=== PATIENT | male | born 1965 | race Caucasian/White ===

== ENCOUNTER 2019-12-04 18:56 | Emergency (ER) | payer BC, MEDICARE ==
[2019-12-04] MEDS ORDERED: Sodium Chloride 0.9% 10 ML Syringe FLUSH PRN (20:17)
[2019-12-04] MEDS ORDERED: Sodium Chloride 0.9% 2.5 ML Syringe FLUSH PRN (20:17)
--- NOTE | 2019-12-04 20:51 | EDM.PDOC ---
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 Patient has no complaints relating to fever. He has no recent coughing or shortness of breath. No recent chest pain. No arm or jaw pain. However he does report right thigh pain which is medial. It only seems to hurt when he moves his leg upward and inward. He does not hurt unless he is walking. The pain is mild to moderate. He suspects maybe he pulled a muscle. Patient has no history of lower leg clots and is on aspirin as well as Coumadin. Patient does not make hardly any urine this is not changed however he also endorses normal stooling recently. No recent falls. No recent confusion, headaches, vision changes. No recent weight loss. right upper leg Pain Score (Numeric/FACES): 3 - Related Data Allergies Allergy/AdvReac Type Severity Reaction Status Date / Time heparin Allergy Other Verified 12/04/19 19:56 Home Meds: Home Meds Aspirin 81 mg PO DAILY 12/04/19 [History] Cholecalciferol (Vitamin D3) [Vitamin D3] 1 cap PO DAILY 12/04/19 [History] Ciprofloxacin HCl [Cipro] 500 mg PO DAILY 12/04/19 [History] Fluconazole [Diflucan] 400 mg PO ASDIRECTED 12/04/19 [History] Folic Acid/Vit B Complex and C [Dialyvite] 1 tab PO DAILY 12/04/19 [History] Oxymetazoline [Afrin Original 0.05% Nasal [place]] 2 drop NASBOTH BID PRN [History] Pantoprazole Sodium [Protonix] 40 mg PO DAILY 12/04/19 [History] Phytonadione (Vit K1) [Vitamin K1] 100 mcg PO DAILY 12/04/19 [History] Rosuvastatin [Crestor] 10 mg PO DAILY 12/04/19 [History] Sodium Chloride [Theodosia] 1 spray NASBOTH DAILY PRN 12/04/19 [History] Warfarin Sodium [Coumadin] 1 mg PO ASDIRECTED 12/04/19 [History] Warfarin Sodium [Coumadin] 2 mg PO ASDIRECTED 12/04/19 [History] amLODIPine [Norvasc] 10 mg PO DAILY 12/04/19 [History] polyethylene glycoL 3350 [MiraLAX] 17 gm PO DAILY PRN 12/04/19 [History] Past Medical History Cardiovascular History: Reports: Other (See Below) Other Cardiovascular History: LVAD Respiratory History: Reports: Other (See Below) Other Respiratory History: Fluid in R lung Genitourinary History: Reports: Acute Renal Failure, Dialysis Social & Family History - Family History Family Medical History: Noncontributory - Tobacco Use Smoking Status *Q: Never Smoker - Recreational Drug Use Recreational Drug Use: No ED ROS GENERAL - Review of Systems Review Of Systems: Comprehensive ROS is negative, except as noted in HPI. ED EXAM, GENERAL - Physical Exam Exam: See Below Free Text/Narrative:: General: No acute distress. Comfortable. Heent: Examination revealed no pallor, no icterus, no lymphadenopathy. The patient has normal posterior pharynx, moist mucous membranes. Neck: Supple. No JVD. No rigidity. Heart: Lvad fucntional Lungs: Normal rise and fall. Symmetric movement. Normal rate.. Abdomen: Nontender, non-distended, soft, no CVA tenderness. Neuro: Pt is moving all four extremities. EOMI. PERRL. Normal speech. Skin: Exposed areas appeared normally perfused, warm, normal color with no meaningful rashes or lesions. Extremities: Peripheral examination revealed no pedal edema. Peripheral pulses were 2+. There is tenderness along the proximal portion of the muscle tendons relating to the obturator grouping. There is no swelling of the leg or pain or tenderness along the track of the femoral artery or vein. Course - Vital Signs Text/Narrative:: Stable patient however with a history of some shaking chills and a fever at dialysis today. Significant leukocytosis with significant bandemia. Vancomycin , admission overnight for monitoring for possible very early bacteremia. Last Recorded V/S: Last Vital Signs Temp 100.4 F 12/04/19 21:08 Pulse 108 H 12/04/19 21:08 Resp 18 12/04/19 21:08 BP 114/92 H 12/04/19 21:08 Pulse Ox 98 12/04/19 21:08 - Orders/Labs/Meds Orders: Active Orders 24 hr Category Date Time Status Admission Status [Patient Status] [ADT] Stat ADT 12/04/19 22:43 Active CULTURE BLOOD [BC] Stat Lab 12/04/19 20:20 Received CULTURE BLOOD [BC] Stat Lab 12/04/19 20:29 Received Sodium Chloride 0.9% [Saline Flush] Med 12/04/19 20:17 Active 10 ml FLUSH ASDIRECTED PRN Sodium Chloride 0.9% [Saline Flush] Med 12/04/19 20:17 Active 2.5 ml FLUSH ASDIRECTED PRN Vancomycin 1 gm Med 12/04/19 22:14 Active Sodium Chloride 0.9% [Normal Saline (AdvBag)] 250 ml IV ONETIME Blood Culture x2 Reflex Set [OM.PC] Stat Oth 12/04/19 20:17 Ordered Saline Lock Insert [OM.PC] Stat Oth 12/04/19 20:17 Ordered Medication Orders Vancomycin HCl 1 gm/ Sodium (Chloride) 250 mls @ 166 mls/hr IV ONETIME ONE Stop: 12/04/19 23:44 Last Admin: 12/04/19 22:39 Dose: 166 mls/hr Sodium Chloride (Saline Flush) 10 ml FLUSH ASDIRECTED PRN PRN Reason: Keep Vein Open Last Admin: 12/04/19 20:19 Dose: 10 ml Sodium Chloride (Saline Flush) 2.5 ml FLUSH ASDIRECTED PRN PRN Reason: Keep Vein Open Last Admin: 12/04/19 20:19 Dose: 2.5 ml Labs: Laboratory Tests 12/04/19 12/04/19 12/04/19 Range/Units 20:20 20:20 20:30 WBC 21.67 H (4.0-11.0) K/uL RBC 4.40 L (4.50-5.90) M/uL Hgb 11.4 L (13.0-17.0) g/dL Hct 37.1 L (38.0-50.0) % MCV 84.3 (80.0-98.0) fL MCH 25.9 L (27.0-32.0) pg MCHC 30.7 L (31.0-37.0) g/dL RDW Std Deviation 50.1 (28.0-62.0) fl RDW Coeff of Ulices 16 H (11.0-15.0) % Plt Count 462 H (150-400) K/uL MPV 9.40 (7.40-12.00) fL Neut % (Auto) 83.6 H (48.0-80.0) % Lymph % (Auto) 4.5 L (16.0-40.0) % [place] % (Auto) 11.3 (0.0-15.0) % Eos % (Auto) 0.5 (0.0-7.0) % Baso % (Auto) 0.1 (0.0-1.5) % Neut # (Auto) 18.1 H (1.4-5.7) K/uL Lymph # (Auto) 1.0 (0.6-2.4) K/uL [place] # (Auto) 2.4 H (0.0-0.8) K/uL Eos # (Auto) 0.1 (0.0-0.7) K/uL Baso # (Auto) 0.0 (0.0-0.1) K/uL Nucleated RBC % 0.0 /100WBC Nucleated RBCs # 0 K/uL Lactate 1.6 (0.20-2.00) mmol/L Sodium 136 (136-148) mmol/L Potassium 3.5 (3.5-5.1) mmol/L Chloride 95 L (98-107) mmol/L Carbon Dioxide 31.4 (21.0-32.0) mmol/L BUN 12 (7.0-18.0) mg/dL Creatinine 2.7 H (0.8-1.3) mg/dL Est Cr Clr Drug Dosing 28.09 mL/min Estimated GFR (MDRD) 24.7 ml/min Glucose 106 (74-106) mg/dL Calcium 8.6 (8.5-10.1) mg/dL Total Bilirubin 0.5 (0.2-1.0) mg/dL AST 28 (15-37) IU/L ALT 27 (14-63) IU/L Alkaline Phosphatase 82 (46-116) U/L Total Protein 8.4 H (6.4-8.2) g/dL Albumin 3.4 (3.4-5.0) g/dL Globulin 5.0 H (2.6-4.0) g/dL Albumin/Globulin Ratio 0.7 L (0.9-1.6) Meds: Medications Generic Name Dose Route Start Last Admin Trade Name Freq PRN Reason Stop Dose Admin Vancomycin HCl 1 gm/ Sodium 250 mls @ 166 mls/hr 12/04/19 22:14 12/04/19 22: 39 Chloride IV 12/04/19 23:44 166 mls/hr ONETIME ONE Administration Sodium Chloride 10 ml 12/04/19 20:17 12/04/19 20:19 Saline Flush FLUSH 10 ml ASDIRECTED PRN Administration Keep Vein Open Sodium Chloride 2.5 ml 12/04/19 20:17 12/04/19 20:19 Saline Flush FLUSH 2.5 ml ASDIRECTED PRN Administration Keep Vein Open Departure - Departure Time of Disposition: 22:15 Disposition: Admitted As Inpatient 66 Condition: Fair Clinical Impression: Fever Qualifiers: Fever type: due to other condition Qualified Code(s): R50.81 - Fever presenting with conditions classified elsewhere Leukocytosis Qualifiers: Leukocytosis type: bandemia Qualified Code(s): D72.825 - Bandemia - Discharge Information Referrals: PCP,Not In Area [Primary Care Provider] - Forms: ED Department Discharge Sepsis Event Note - Evaluation Sepsis Screening Result: No Definite Risk - Focused Exam Vital Signs: Vital Signs Temp Temp Pulse Resp BP Pulse Ox 12/04/19 21:08 100.4 F 108 H 18 114/92 H 98 12/04/19 20:18 98.0 F 12/04/19 19:53 99.4 F 116 H 18 108/78 93 L Date Exam was Performed: 12/04/19 Time Exam was Performed: 23:05 - My Orders Last 24 Hours: My Active Orders 12/04/19 20:17 Sodium Chloride 0.9% [Saline Flush] 10 ml FLUSH ASDIRECTED PRN Sodium Chloride 0.9% [Saline Flush] 2.5 ml FLUSH ASDIRECTED PRN Blood Culture x2 Reflex Set [OM.PC] Stat Saline Lock Insert [OM.PC] Stat 12/04/19 20:20 CULTURE BLOOD [BC] Stat 12/04/19 20:29 CULTURE BLOOD [BC] Stat 12/04/19 22:14 Vancomycin 1 gm Sodium Chloride 0.9% [Normal Saline (AdvBag)] 250 ml IV ONETIME 12/04/19 22:43 Admission Status [Patient Status] [ADT] Stat - Assessment/Plan Last 24 Hours: My Active Orders 12/04/19 20:17 Sodium Chloride 0.9% [Saline Flush] 10 ml FLUSH ASDIRECTED PRN Sodium Chloride 0.9% [Saline Flush] 2.5 ml FLUSH ASDIRECTED PRN Blood Culture x2 Reflex Set [OM.PC] Stat Saline Lock Insert [OM.PC] Stat 12/04/19 20:20 CULTURE BLOOD [BC] Stat 12/04/19 20:29 CULTURE BLOOD [BC] Stat 12/04/19 22:14 Vancomycin 1 gm Sodium Chloride 0.9% [Normal Saline (AdvBag)] 250 ml IV ONETIME 12/04/19 22:43 Admission Status [Patient Status] [ADT] Stat
[2019-12-04 20:57] LABS: CARBON DIOXIDE,CO2 31.4 mmol/L (21.0-32.0); POTASSIUM,K 3.5 mmol/L (3.5-5.1)
--- NOTE | 2019-12-04 21:53 | CR ---
Chest: 2 views of the chest were obtained. Comparison: Prior chest x-ray is not available. Elevated right hemidiaphragm is noted. Blunting of the right lateral costophrenic angle is seen. Linear density is noted off the right hilar region. Findings most likely are chronic although old chest x-ray would be needed to confirm. Right sided dialysis catheter is noted. Pacemaker is noted. Previous sternotomy is noted. Left ventricular assist device is noted. Left lung is clear. Impression: 1. Findings as noted above most likely chronic although old study would be needed to confirm. Diagnostic code #3 This report was dictated in MDT
[2019-12-04] MEDS ORDERED: EPINEPHrine 1 MG/ML 30 ML MDV IM ONE ×2 (23:45→23:51)
[2019-12-04] MEDS ORDERED: Sodium Chloride 0.9% 200 ML IV SCH (23:45)
[2019-12-04] MEDS ORDERED: Ondansetron 4 MG/2 ML SDV ONE (23:52)
[2019-12-04] MEDS ORDERED: Ondansetron 4 MG/2 ML SDV IVPUSH ONE (23:53)
[2019-12-04] MEDS ORDERED: diphenhydrAMINE 50 MG/ML SDV IVPUSH ONE (23:54)
[2019-12-04] MEDS ORDERED: diphenhydrAMINE 50 MG/ML SDV ONE (23:55)
[2019-12-05] MEDS ORDERED: EPINEPHrine 1 MG in Dextrose 5% in Water 99 ML IV SCH ×4 (00:15→00:34)
[2019-12-05] MEDS ORDERED: EPINEPHrine 1 MG/ML SDV ONE (00:20)
--- NOTE | 2019-12-05 01:01 | CR ---
INDICATION: SOA INDICATION: SOA TECHNIQUE: Chest 1 view. 11:41 p.m. COMPARISON: A 40 9 p.m. FINDINGS: Cardiovascular and mediastinum: Heart size and vasculature are normal in caliber and appearance. Non wires noted. Mediastinum is within normal limits. LVAD assist device noted. Left-sided transvenous pacer device. Right-sided central line tip at the caval atrial junction. Lungs and pleural space: Stable elevation right hemidiaphragm. Lungs are clear. No sign of infiltrate or mass. No sign of pleural effusion. No pneumothorax. Bones and soft tissues: No significant findings. IMPRESSION: Unremarkable chest. Dictated by Supa De La Rosa MD @ 12/05/2019 1:01:16 AM Dictated by: Supa De La Rosa MD @ 12/05/2019 01:01:26 (Electronically Signed)
== END 2019-12-05 01:08 | disposition critical access hospital (66) ==
LOC: MW.ED 18:56 → UNDOADMOB 22:43 → MW.MS 22:43 → UNDODISOB 12-05 00:41
DX: D72.825 Bandemia (principal); R50.81 Fever presenting with conditions classified elsewhere; I50.9 Heart failure, unspecified; Z88.8 Allergy status to other drugs, medicaments and biological substances; Z79.82 Long term (current) use of aspirin; Z79.01 Long term (current) use of anticoagulants; Z95.811 Presence of heart assist device
CPT/HCPCS: 36415; 71045; 71046; 80053; 83605; 85025; 85610; 87040; 87077; 87186; 96374; 99284; J0171; J1200; J2405; J3370; J7040; J7050; J7060; 99283